=== PATIENT | female | born 1960 | race Caucasian/White ===

== ENCOUNTER → 2017-08-19 | Outpatient (CLI) | payer OTHER ==
[~2017-08-19] MED LIST: ALPR0.25 PO; LANS30CA60 PO; RABE20TA18 PO
[2017-08-19 16:15] LABS: ALBUMIN 3.7 g/dL (3.4-5.0); ANION GAP 5 mmol/L (5-15); CALCIUM 8.4 mg/dL (8.5-10.1); CHLORIDE 106 mmol/L (98-107)
[2017-08-19 16:31] LABS: ALANINE AMINOTRANSFERASE 26 U/L (12-78); ALKALINE PHOSPHATASE 75 U/L (45-117); BILIRUBIN,TOTAL 0.4 mg/dL (0.2-1.0); CHOLESTEROL, TOTAL 196 mg/dL (140-239); CREATININE 0.66 mg/dL (0.55-1.02); HDL CHOL % 33 % (28-40); HDL CHOLESTEROL (DIRECT) 65 mg/dL (40-60); LDL CHOLESTEROL,CALCULATED 116 mg/dL (54-169); LDL/HDL RATIO 1.8 (0.5-3.0); TOTAL PROTEIN 7.1 g/dL (6.4-8.2); TRIGLYCERIDES 76 mg/dL (50-200); VLDL CHOLESTEROL 15 mg/dL (0-25)
== END | disposition home or self-care (01) ==
LOC: CFH 12:38
PROVIDERS: ATTEND Internal Medicine Cardiovascular Disease
DX: I35.1 Nonrheumatic aortic (valve) insufficiency (principal); Z86.73 Personal history of transient ischemic attack (TIA), and cerebral infarction without residual deficits; I65.29 Occlusion and stenosis of unspecified carotid artery
CPT/HCPCS: 36415; 80053; 80061; 93306

== ENCOUNTER → 2018-08-22 | Outpatient (CLI) | payer OTHER | END | disposition home or self-care (01) | LOC: CFH 10:44 | PROVIDERS: ATTEND Internal Medicine Cardiovascular Disease | DX: I35.1 Nonrheumatic aortic (valve) insufficiency (principal) | CPT/HCPCS: 93306 ==

== ENCOUNTER → 2019-07-11 | Outpatient (CLI) | payer OTHER | END | disposition home or self-care (01) | LOC: CVU 14:38 | PROVIDERS: ATTEND Internal Medicine Cardiovascular Disease | DX: I08.0 Rheumatic disorders of both mitral and aortic valves (principal); Z86.73 Personal history of transient ischemic attack (TIA), and cerebral infarction without residual deficits; Z87.891 Personal history of nicotine dependence | CPT/HCPCS: 0399T; 93306 ==

== ENCOUNTER 2019-08-08 10:39 | Day surgery (SDC) | payer OTHER ==
[~2019-08-08] VITALS: Ht 152.4 cm; Wt 48.2 kg
[2019-08-08 11:12] VITALS: BP 137/74
[2019-08-08] MEDS ORDERED: AMIT10TA PO (11:27)
[2019-08-08] MEDS ORDERED: PLEASE ENTER HEIGHT AND WEIGHT MC SCH (11:30)
[2019-08-08] MEDS ORDERED: SODIUM CHLORIDE 0.9% 1,000 ML IV SCH (11:30)
[2019-08-08] MEDS ORDERED: PROPOFOL 10 MG/ML, 20ML ONE (12:21)
== END 2019-08-08 13:45 | disposition home or self-care (01) ==
LOC: CACL 10:39
PROVIDERS: ATTEND Internal Medicine Cardiovascular Disease
DX: I35.1 Nonrheumatic aortic (valve) insufficiency (principal); E78.01 Familial hypercholesterolemia; M81.0 Age-related osteoporosis without current pathological fracture; Z79.899 Other long term (current) drug therapy; Z86.73 Personal history of transient ischemic attack (TIA), and cerebral infarction without residual deficits; Z88.5 Allergy status to narcotic agent; Z91.012 Allergy to eggs; Z91.018 Allergy to other foods; Z88.8 Allergy status to other drugs, medicaments and biological substances
CPT/HCPCS: 93312; 93325; J2704

== ENCOUNTER → 2019-08-16 | Outpatient (CLI) | payer OTHER ==
[~2019-08-16] MED LIST changes: +AMIT10TA PO
== END | disposition home or self-care (01) ==
LOC: RAD 14:38
PROVIDERS: ATTEND Internal Medicine Cardiovascular Disease
DX: D15.1 Benign neoplasm of heart (principal)
CPT/HCPCS: 71250

== ENCOUNTER 2019-12-10 14:50 | Outpatient (CLI) | payer BC, OTHER | END 2019-12-10 23:59 | disposition home or self-care (01) | LOC: CVU 14:50 → EDSTATUS 15:00 → CVU 23:59 | PROVIDERS: ATTEND Internal Medicine Cardiovascular Disease | DX: I08.0 Rheumatic disorders of both mitral and aortic valves (principal) | CPT/HCPCS: 93306; 93356 ==

== ENCOUNTER 2020-02-11 14:00 | Outpatient (CLI) | payer BC | END 2020-02-11 23:59 | disposition home or self-care (01) | LOC: CVU 14:00 | PROVIDERS: ATTEND Internal Medicine Cardiovascular Disease | DX: I35.1 Nonrheumatic aortic (valve) insufficiency (principal); I65.21 Occlusion and stenosis of right carotid artery; I63.9 Cerebral infarction, unspecified | CPT/HCPCS: 93306; 93356; 93880 ==

== ENCOUNTER → 2020-07-31 | Outpatient (CLI) | payer BC | END | disposition home or self-care (01) | LOC: CVU 07:33 | PROVIDERS: ATTEND Internal Medicine Cardiovascular Disease | DX: I08.0 Rheumatic disorders of both mitral and aortic valves (principal) | CPT/HCPCS: 93306; 93356 ==